=== PATIENT | male | born 1965 | race Caucasian/White ===

== ENCOUNTER 2020-01-11 12:27 | Inpatient (IN) | payer OTHER ==
[~2020-01-11] VITALS: Ht 172.7 cm; Wt 194.3 kg
[2020-01-11 12:32] VITALS: Ht 172.7 cm; Wt 194.3 kg
[2020-01-11 13:07] LABS: CALCIUM 8.3 mg/dL (8.5-10.1); CARBON DIOXIDE 24.1 mmol/L (21-32); CHLORIDE SERUM 109 mmol/L (98-107); CREATININE SERUM 1.3 mg/dL (0.7-1.3); GFR1 > 60 mL/min; GLUCOSE SERUM 171 mg/dL (74-106); POTASSIUM SERUM 4.1 mmol/L (3.5-5.1); SODIUM SERUM 142 mmol/L (136-145)
[2020-01-11 13:12] LABS: ALBUMIN 3.5 g/dL (3.4-5.0); ALKALINE PHOSPHATASE 109 U/L (46-116); ALT/SGPT 23 U/L (16-63); AST/SGOT 15 U/L (15-37); BILIRUBIN TOTAL 0.36 mg/dL (0.20-1.00); TOTAL PROTEIN, SERUM 7.3 g/dL (6.4-8.2)
[2020-01-11 13:18] LABS: PLATELET COUNT 194 x10^3mcL (130-400); RED CELL DISTRIBUTION WIDTH 13.1 % (11.5-14.5)
[2020-01-11] MEDS ORDERED: ALTOPREV40 M2 PO (14:47)
[2020-01-11] MEDS ORDERED: LYRICA75 M1 PO (14:48)
[2020-01-11] MEDS ORDERED: ECOTRIN325 M1 PO (14:48)
[2020-01-11] MEDS ORDERED: ADVAIR DISKUS 51 AER IH (14:48)
[2020-01-11] MEDS ORDERED: TENORMIN100 MG PO (14:48)
[2020-01-11] MEDS ORDERED: APR50 PO (14:49)
[2020-01-11] MEDS ORDERED: DILTIAZEM CD180 MG PO (14:49)
[2020-01-11] MEDS ORDERED: GLYBURIDE AND M1 TA4 PO (14:49)
[2020-01-11] MEDS ORDERED: METFORMIN XR500 MG PO (14:50)
[2020-01-11] MEDS ORDERED: COZAAR50 M1 PO (14:50)
[2020-01-11] MEDS ORDERED: ZESTRIL20 MG PO (14:50)
[2020-01-11] MEDS ORDERED: LEVOXYL0.2 MG PO (14:50)
[2020-01-11 15:55] VITALS: BP 147/67; BP 152/77
[2020-01-11] MEDS ORDERED: DULOXETINE HYDR30 MG PO (16:09)
[2020-01-11 16:25] LABS: CHOLESTEROL/HDL RATIO 3.5
[2020-01-11 16:35] LABS: T3 TOTAL 1.07 ng/mL
[2020-01-11 17:09] LABS: FREE T4 1.9 ng/dL (0.76-1.46); FREE THYROXINE INDEX 4.5 ug/dL (1.4-4.5); T4(THYROXINE) 12.5 ug/dL (4.7-13.3)
[2020-01-11 20:47] VITALS: BP 169/75
[2020-01-12] VITALS (7 sets, daily range): BP systolic 140–160; BP diastolic 58–92
[2020-01-12 00:28] LABS: microscopic required? NO
[2020-01-12 01:00] LABS: UA SPECIFIC GRAVITY 1.015 (1.005-1.035); urine erythrocyte NEGATIVE (NEGATIVE)
[2020-01-12 01:39] LABS: AMPHETAMINE QUAL UR NONE DETECTED (See below)
[2020-01-12 06:30] LABS: BASOPHIL % 1.3 % (0-2); PLATELET COUNT 166 x10^3mcL (130-400); RED CELL DISTRIBUTION WIDTH 14.1 % (11.5-14.5)
[2020-01-12 07:13] LABS: CALCIUM 8.1 mg/dL (8.5-10.1); CARBON DIOXIDE 25.1 mmol/L (21-32); CHLORIDE SERUM 109 mmol/L (98-107); CREATININE SERUM 1.2 mg/dL (0.7-1.3); GFR1 > 60 mL/min; GLUCOSE SERUM 145 mg/dL (74-106); MAGNESIUM 1.7 mg/dL (1.8-2.4); PHOSPHOROUS 4.2 mg/dL (2.5-4.9); POTASSIUM SERUM 4.3 mmol/L (3.5-5.1); SODIUM SERUM 144 mmol/L (136-145)
[2020-01-12] MEDS ORDERED: ASPIR 8181 MG PO (14:35)
[2020-01-13 05:57] VITALS: BP 136/73
[2020-01-13 06:14] LABS: BASOPHIL % 1.1 % (0-2); PLATELET COUNT 176 x10^3mcL (130-400); RED CELL DISTRIBUTION WIDTH 14.3 % (11.5-14.5)
[2020-01-13 06:41] LABS: CALCIUM 8.6 mg/dL (8.5-10.1); CARBON DIOXIDE 25.6 mmol/L (21-32); CHLORIDE SERUM 107 mmol/L (98-107); CREATININE SERUM 1.2 mg/dL (0.7-1.3); GFR1 > 60 mL/min; GLUCOSE SERUM 145 mg/dL (74-106); MAGNESIUM 2.1 mg/dL (1.8-2.4); PHOSPHOROUS 4.6 mg/dL (2.5-4.9); POTASSIUM SERUM 4.6 mmol/L (3.5-5.1); SODIUM SERUM 143 mmol/L (136-145)
[2020-01-13 08:09] VITALS: BP 138/77
[2020-01-13 11:58] VITALS: BP 161/66
[2020-01-13 12:47] VITALS: BP 161/66
== END 2020-01-13 13:19 | disposition home or self-care (01) | DRG 313 ==
LOC: ED 12:27 → DU 14:50 → MU 14:50 → DU 15:30 → MU 01-13 05:39
PROVIDERS: Emergency Medicine; Family Medicine; ADMIT Internal Medicine
DX: R07.89 Other chest pain (principal); N17.0 Acute kidney failure with tubular necrosis; Z68.44 Body mass index [BMI] 60.0-69.9, adult; E11.42 Type 2 diabetes mellitus with diabetic polyneuropathy; I10 Essential (primary) hypertension; J45.909 Unspecified asthma, uncomplicated; E78.5 Hyperlipidemia, unspecified; E83.42 Hypomagnesemia; E66.01 Morbid (severe) obesity due to excess calories; G47.33 Obstructive sleep apnea (adult) (pediatric); Z79.84 Long term (current) use of oral hypoglycemic drugs; Z85.850 Personal history of malignant neoplasm of thyroid; Z90.89 Acquired absence of other organs; Z87.891 Personal history of nicotine dependence; Z90.5 Acquired absence of kidney; Z79.899 Other long term (current) drug therapy
CPT/HCPCS: 82962; 83880; 84439; G0378; J1644; J3475; J7626

== ENCOUNTER 2020-08-01 09:35 | Emergency (ER) | payer OTHER ==
[~2020-08-01] VITALS: Ht 172.7 cm; Wt 203.2 kg
[~2020-08-01 09:35] MED LIST: ADVAIR DISKUS 51 AER IH; ALTOPREV40 M2 PO; APR50 PO; ASPIR 8181 MG PO; COZAAR50 M1 PO; DILTIAZEM CD180 MG PO; DULOXETINE HYDR30 MG PO; ECOTRIN325 M1 PO; GLYBURIDE AND M1 TA4 PO; LEVOXYL0.2 MG PO; LYRICA75 M1 PO; METFORMIN XR500 MG PO; TENORMIN100 MG PO; ZESTRIL20 MG PO
[2020-08-01 09:51] VITALS: Ht 172.7 cm; Wt 203.2 kg
[2020-08-01 11:13] LABS: BASOPHIL % 0.9 % (0-2); PLATELET COUNT 177 x10^3mcL (130-400)
[2020-08-01 11:32] LABS: CALCIUM 8.3 mg/dL (8.5-10.1); CARBON DIOXIDE 24.4 mmol/L (21-32); CHLORIDE SERUM 107 mmol/L (98-107); CREATININE SERUM 1.3 mg/dL (0.7-1.3); GFR1 > 60 mL/min; GLUCOSE SERUM 199 mg/dL (74-106); POTASSIUM SERUM 4.1 mmol/L (3.5-5.1); SODIUM SERUM 140 mmol/L (136-145)
[2020-08-01 11:38] LABS: ALKALINE PHOSPHATASE 82 U/L (46-116); ALT/SGPT 24 U/L (16-63); AST/SGOT 13 U/L (15-37); BILIRUBIN TOTAL 0.6 mg/dL (0.20-1.00); TOTAL PROTEIN, SERUM 6.7 g/dL (6.4-8.2)
[2020-08-01 11:53] LABS: ALBUMIN 3.3 g/dL (3.4-5.0)
[2020-08-01 14:06] VITALS: BP 150/75
== END 2020-08-01 14:06 | disposition home or self-care (01) ==
LOC: ED 09:35
PROVIDERS: Emergency Medicine
DX: S80.11XA Contusion of right lower leg, initial encounter (principal); S80.211A Abrasion, right knee, initial encounter; L08.9 Local infection of the skin and subcutaneous tissue, unspecified; E11.9 Type 2 diabetes mellitus without complications; I10 Essential (primary) hypertension; E78.00 Pure hypercholesterolemia, unspecified; E03.9 Hypothyroidism, unspecified; E66.01 Morbid (severe) obesity due to excess calories; Z68.44 Body mass index [BMI] 60.0-69.9, adult; W01.0XXA Fall on same level from slipping, tripping and stumbling without subsequent striking against object, initial encounter; Y93.89 Activity, other specified; Y92.89 Other specified places as the place of occurrence of the external cause; Y99.8 Other external cause status
CPT/HCPCS: 82962; 90715; J2001; Q0092

== ENCOUNTER 2020-08-14 10:03 | Emergency (ER) | payer OTHER ==
[~2020-08-14] VITALS: Ht 172.7 cm; Wt 202.3 kg
[2020-08-14 10:11] VITALS: Ht 172.7 cm; Wt 202.3 kg
[2020-08-14 11:11] VITALS: BP 186/66
== END 2020-08-14 11:11 | disposition home or self-care (01) ==
LOC: ED 10:03
DX: S80.01XD Contusion of right knee, subsequent encounter (principal); L76.22 Postprocedural hemorrhage of skin and subcutaneous tissue following other procedure; I10 Essential (primary) hypertension; E66.9 Obesity, unspecified; E11.40 Type 2 diabetes mellitus with diabetic neuropathy, unspecified; E78.5 Hyperlipidemia, unspecified; Z98.890 Other specified postprocedural states; X58.XXXD Exposure to other specified factors, subsequent encounter